=== PATIENT | male | born 1980 | race Two or more races ===

== ENCOUNTER 2021-11-09 16:12 | Emergency (ER) | payer OTHER ==
[~2021-11-09] VITALS: Ht 167.6 cm; Wt 65.8 kg
[2021-11-09] MEDS ORDERED: AZITHROMYCIN 500 MG (17:06)
[2021-11-09] MEDS ORDERED: DICLOFENAC SODI75 MG PO (17:25)
[2021-11-09] MEDS ORDERED: AMOX-CLAV 875-1 EACH PO (17:25)
== END 2021-11-09 18:36 | disposition home or self-care (01) ==
LOC: ER 16:12
DX: J03.80 Acute tonsillitis due to other specified organisms (principal)